=== PATIENT | male | born 1970 | race Caucasian/White ===

== ENCOUNTER 2025-06-30 01:30 | Emergency (ER) | payer MEDICARE, MEDICAID ==
[~2025-06-30] VITALS: Ht 167.6 cm; Wt 106.0 kg
[2025-06-30 01:40] VITALS: BP 172/94; PULSE 86; RESP 20; TEMP 36.8; O2SAT 98
== END 2025-06-30 02:02 | disposition left against medical advice (07) ==
LOC: ER 01:30
DX: M79.605 Pain in left leg (principal); Z53.21 Procedure and treatment not carried out due to patient leaving prior to being seen by health care provider